=== PATIENT | male | born 1970 | race Caucasian/White ===

== ENCOUNTER 2016-12-03 22:16 | Emergency (ER) | payer SELFPAY ==
[2016-12-03 22:30] VITALS: BP 142/96; PULSE 101; RESP 18; TEMP 97.9; O2SAT 97
== END 2016-12-03 22:40 | disposition home or self-care (01) ==
LOC: CED 22:16
DX: Z53.21 Procedure and treatment not carried out due to patient leaving prior to being seen by health care provider (principal)